=== PATIENT | female | born 2000 | race Two or more races ===

== ENCOUNTER 2022-06-03 15:17 | Emergency (ER) | payer MEDICAID, SELFPAY ==
--- NOTE | ~2022-06-03 | US_ITS ---
EXAMINATION: US OBSTETRICAL ULTRASOUND CLINICAL INFORMATION: Early , cramping and spotting. Vomiting for 2 days. COMPARISON: None. LMP: 04/04/2022. Gestational age by maternal dates is 8 weeks 4 days. Estimated date of delivery by maternal dates is 01/09/2023. TECHNIQUE: Ultrasound of the maternal pelvis is performed using transabdominal transducer. M-mode Doppler is also performed. FINDINGS: There is a single intrauterine gestational sac with visible yolk sac, embryo/fetus, and cardiac activity. There is no significant subchorionic hemorrhage or hematoma. HR: 172 beats per minute. CRL (crown rump length): 2.19 cm (8 weeks 6 days +/- 4 days). AVE (estimated date of delivery): 01/07/2023 +/- 4 days. MATERNAL ADNEXA: The right maternal ovary measures 3.6 x 1.2 x 1.5 cm. The left maternal ovary measures 4.0 x 2.6 x 2.8 cm. No maternal adnexal mass. No maternal pelvic ascites. US/US OB <= 14 weeks fetus IMPRESSION: -Single intrauterine gestation with ultrasound gestational age of 8 weeks 6 days +/- 4 days. -Estimated date of delivery is 01/07/2023 +/- 4 days. - cardiac activity 172 bpm. -No subchorionic hematoma. -No maternal adnexal mass or pelvic ascites.
[2022-06-03 15:46] VITALS: BP 108/68; PULSE 63; RESP 16; TEMP 36.2; O2SAT 100; BMI 27.2
--- NOTE | 2022-06-03 15:49 | ED.PREGNANCY ---
HPI - General Chief complaint: Nausea/Vomiting/Diarrhea <SCOOTER Montes De Oca - Last Filed: 06/03/22 15:52> Stated complaint: Vomiting 8 weeks <SCOOTER Montes De Oca - Last Filed: 06/03/22 15:52> Time Seen by Provider: 06/03/22 17:44 <SCOOTER Montes De Oca - Last Filed: 06/03/22 15:52> Source: patient <SCOOTER Coffey Last Filed: 06/03/22 19:09> Mode of arrival: ambulatory <SCOOTER Coffey Last Filed: 06/03/22 19:09> Limitations: no limitations <SCOOTER Coffey Last Filed: 06/03/22 19:09> History of Present Illness HPI Narrative: Patient is a 21 year old assigned female at with no reported medical history presenting to the emergency department today with nausea and pelvic cramping. Patient states that she is 8 weeks and has been having a lot of nausea, vomiting, and pelvic cramping. Patient denies any dizziness, lightheadedness, fever, chills, blurry vision, double vision, loss of vision, chest pain, difficulty breathing, shortness of breath, back pain, night sweats, pain with urination, increased urinary frequency, increased urinary urgency, blood in her urine or stool, syncope or a near syncopal episode, recent trauma or falls, bowel incontinence, bladder incontinence, bowel retention, bladder retention, or any other complaints at this time. Patient denies any vaginal discharge or bleeding at this time. <SCOOTER Coffey - Last Filed: 06/03/22 19:09> Onset (ago): day(s) <SCOOTER Coffey - Last Filed: 06/03/22 19:09> Severity scale (1-10): 1 <SCOOTER Coffey Last Filed: 06/03/22 19:09> Vaginal discharge: none <SCOOTER Coffey Last Filed: 06/03/22 19:09> Vaginal bleeding: none <SCOOTER Coffey Last Filed: 06/03/22 19:09> Number of Weeks : 8 <SCOOTER Coffey Last Filed: 06/03/22 19:09> care: none <SCOOTER Coffey Last Filed: 06/03/22 19:09> Related Data Home medications: Previous Rx's Medication Instructions Recorded cephalexin 500 mg capsule 500 mg PO Q6H 7 days #28 caps 06/03/22 metoclopramide HCl 5 mg tablet 5 mg PO DAILY #7 tabs 06/03/22 (Reglan) prenat.vits,celestino,[id number] 1 tab PO DAILY #30 tabs 06/03/22 <SCOOTER Montes De Oca Last Filed: 06/03/22 15:52> Allergies/Adverse reactions: Allergies Allergy/AdvReac Type Severity Reaction Status Date / Time No Known Allergies Allergy Verified 06/03/22 15:46 <SCOOTER Montes De Oca Last Filed: 06/03/22 15:52> Review of Systems Constitutional: Constitutional: Reports no additional constitutional complaints, Denies chills, Denies fever(s) and Denies night sweats <SCOOTER Coffey Last Filed: 06/03/22 19:09> Eyes: Eyes: Reports no additional eye complaints, Denies blurry vision, Denies change in vision, Denies diplopia, Denies eye discharge, Denies loss of vision and Denies eye pain <SCOOTER Coffey Last Filed: 06/03/22 19:09> ENT: Denies dizziness <SCOOTER Coffey Last Filed: 06/03/22 19:09> Cardiovascular: Cardiovascular: Reports no additional cardiovascular complaints, Denies chest pain, Denies lightheadedness, Denies Loss of Consciousness and Denies dyspnea <SCOOTER Coffey Last Filed: 06/03/22 19:09> Respiratory: Respiratory: Reports no additional respiratory complaints and Denies dyspnea <SCOOTER Coffey Last Filed: 06/03/22 19:09> Gastrointestinal: Gastrointestinal: Reports no additional gastrointestinal complaints, Reports abdominal pain, Denies melena, Denies hematochezia, Denies change in bowel habits, Denies change in stool character, Reports nausea and Reports vomiting <SCOOTER Coffey Last Filed: 06/03/22 19:09> Genitourinary: Genitourinary: Denies hematuria, Denies urinary frequency, Denies dysuria, Denies urinary incontinence, Denies urinary hesitancy and Denies urinary urgency <SCOOTER Coffey - Last Filed: 06/03/22 19:09> Musculoskeletal: Musculoskeletal: Reports no additional musculoskeletal complaints, Denies numbness and Denies tingling <SCOOTER Coffey - Last Filed: 06/03/22 19:09> Neurologic: Denies dizziness, Denies loss of vision, Denies numbness and Denies tingling <SCOOTER Coffey - Last Filed: 06/03/22 19:09> Psychiatric: Psychiatric: Reports no additional psychiatric complaints <SCOOTER Coffey - Last Filed: 06/03/22 19:09> Endocrine: Endocrine: Reports no additional endocrine complaints <SCOOTER Coffey - Last Filed: 06/03/22 19:09> Hematologic/Lymphatic: Hematologic/Lymphatic: Reports no additional hematologic/lymphatic complaints <SCOOTER Coffey - Last Filed: 06/03/22 19:09> Allergic/Immunologic: Allergic/Immunologic: Reports no additional allergic/immunologic complaints <SCOOTER Coffey - Last Filed: 06/03/22 19:09> [facility] Past Medical History Attestation statement: The following information was validated with the patient. <SCOOTER Coffey - Last Filed: 06/03/22 19:09> Source: old records reviewed and nursing notes reviewed <SCOOTER Coffey - Last Filed: 06/03/22 19:09> Social History Social History: Social History Advance Directives: No Advance Directives Information Provided: No <SCOOTER Montes De Oca - Last Filed: 06/03/22 15:52> Physical Exam Vital Signs: Vital Signs: Last Vital Signs Temp 97.1 F 06/03/22 15:46 Pulse 77 06/03/22 18:51 Resp 18 06/03/22 18:51 BP 115/68 06/03/22 18:51 Pulse Ox 99 06/03/22 18:51 O2 Del Method 06/03/22 18:51 BMI result Body Mass Index 27.2 <SCOOTER Montes De Oca - Last Filed: 06/03/22 15:52> Vital Signs: Last Vital Signs Temp 97.1 F 06/03/22 15:46 Pulse 77 06/03/22 18:51 Resp 18 06/03/22 18:51 BP 115/68 06/03/22 18:51 Pulse Ox 99 06/03/22 18:51 O2 Del Method 06/03/22 18:51 BMI result Body Mass Index 27.2 <SCOOTER Coffey - Last Filed: 06/03/22 19:09> Const: General: cooperative, no acute distress, alert and awake <SCOOTER Coffey - Last Filed: 06/03/22 19:09> Nutritional Appearance: well nourished <SCOOTER Coffey - Last Filed: 06/03/22 19:09> Orientation/consciousness: patient oriented x3 <SCOOTER Coffey - Last Filed: 06/03/22 19:09> Limitations: no limitations <SCOOTER Coffey - Last Filed: 06/03/22 19:09> HEENT: Head: Yes normal to inspection and Yes atraumatic <SCOOTER Coffey - Last Filed: 06/03/22 19:09> Ears: hearing grossly normal bilaterally and external ears normal <SCOOTER Coffey - Last Filed: 06/03/22 19:09> General nose exam: Normal external nose present, no nasal discharge noted and no epistaxis <SCOOTER Coffey - Last Filed: 06/03/22 19:09> Face and sinus: Yes normal facial exam, No abrasion and No laceration <SCOOTER Coffey - Last Filed: 06/03/22 19:09> Mouth: Normal oral and palatal mucosa present, no drooling and no muffled voice <SCOOTER Coffey - Last Filed: 06/03/22 19:09> Eyes: General: appearance normal, both eyes and all related structures <SCOOTER Coffey - Last Filed: 06/03/22 19:09> Periorbital: periorbital findings normal <SCOOTER Coffey - Last Filed: 06/03/22 19:09> Eyelids: Yes eyelids normal <SCOOTER Coffey - Last Filed: 06/03/22 19:09> Conjunctivae: conjunctivae normal <SCOOTER Coffey - Last Filed: 06/03/22 19:09> Pupils: Equal, round and reactive pupils present <Rianna Thompson PA - Last Filed: 06/03/22 19:09> EOM: EOMs intact bilaterally <Rianna Thompson MT - Last Filed: 06/03/22 19:09> Neck: Neck: Yes normal visual inspection, Yes full ROM and Yes no lymphadenopathy <Rianna Thompson MT - Last Filed: 06/03/22 19:09> Chest: Chest palpation & inspection: normal inspection of the chest <Rianna Thompson PA - Last Filed: 06/03/22 19:09> Resp: Effort & Inspection: normal respiratory effort and able to speak in complete sentences <Rianna Villanuevaporfirio MT - Last Filed: 06/03/22 19:09> Auscultation: clear to auscultation bilaterally <Rianna Thompson MT - Last Filed: 06/03/22 19:09> Cardio: Rate: regular rate <Rianna Villanuevaporfirio MT - Last Filed: 06/03/22 19:09> Rhythm: regular rhythm <Rianna Thompson MT - Last Filed: 06/03/22 19:09> GI: Inspection: Yes normal to inspection <Rianna Thompson MT - Last Filed: 06/03/22 19:09> Palpation (GI): Soft to palpation, not firm, nontender, no guarding and not rigid <Rianna Thompson MT - Last Filed: 06/03/22 19:09> Neuro: General: patient oriented x3 and moves all extremities <Rianna Villanuevaporfirio MT - Last Filed: 06/03/22 19:09> Cranial nerves: Yes Equal, round and reactive pupils present <Rianna Villanuevaporfirio PA - Last Filed: 06/03/22 19:09> Cognition (Neuro): normal cognition <Rianna Villanuevaporfirio PA - Last Filed: 06/03/22 19:09> Motor exam (neuro): 5/5 motor strength present throughout <Rianna Villanuevaporfirio PA - Last Filed: 06/03/22 19:09> Sensory Exam: Normal double simultaneous stimulation for sensation <Rianna Villanuevaporfirio MT - Last Filed: 06/03/22 19:09> Coordination: [id number] test normal <SCOOTER Coffey Last Filed: 06/03/22 19:09> Extrem: General: Yes normal to inspection, Yes full ROM and Yes capillary refill normal <SCOOTER Coffey Last Filed: 06/03/22 19:09> Psych: Appearance: grossly normal <SCOOTER Coffey Last Filed: 06/03/22 19:09> Mental Status: mental status grossly normal <SCOOTER Coffey Last Filed: 06/03/22 19:09> Affect: normal affect <SCOOTER Coffey Last Filed: 06/03/22 19:09> Attitude: cooperative <SCOOTER Coffey Last Filed: 06/03/22 19:09> Thought process: Normal thought process present <SCOOTER Coffey Last Filed: 06/03/22 19:09> Thought content: Normal thought content present <SCOOTER Coffey Last Filed: 06/03/22 19:09> Insight: Good insight present (Psych) <SCOOTER Coffey Last Filed: 06/03/22 19:09> Course Course Course Narrative: RME - 21 y/o female G1 currently 8 weeks with LMP 04/04/22 who presents to the ER for diffuse vomiting for the last 2 days, unable to tolerate any PO. Not taking anything for nausea. She also reports cramping and spotting. [facility] who instructed her to come to the ER for further management. Plan: labs and OB/US <SCOOTER Montes De Oca Last Filed: 06/03/22 15:52> Medications Administered Discontinued Medications Generic Name Dose Route Start Last Admin Trade Name Freq PRN Reason Stop Dose Admin Cephalexin HCl 500 mg 06/03/22 18:36 06/03/22 18:48 Cephalexin 500 Mg Capsule PO 06/03/22 18:37 500 mg ONCE ONE Administration Sodium Chloride 1,000 mls @ 999 mls/hr 06/03/22 18:00 06/03/22 18:18 Ns IV 06/03/22 19:00 999 mls/hr .Q1H1M GOLDEN Administration <SCOOTER Montes De Oca Last Filed: 06/03/22 15:52> Medications Administered Discontinued Medications Generic Name Dose Route Start Last Admin Trade Name Mike PRN Reason Stop Dose Admin Cephalexin HCl 500 mg 06/03/22 18:36 06/03/22 18:48 Cephalexin 500 Mg Capsule PO 06/03/22 18:37 500 mg ONCE ONE Administration Sodium Chloride 1,000 mls @ 999 mls/hr 06/03/22 18:00 06/03/22 18:18 Ns IV 06/03/22 19:00 999 mls/hr .Q1H1M GOLDEN Administration <SCOOTER Coffey - Last Filed: 06/03/22 19:09> Medical Decision Making Medical Decision Making [facility] Narrative: Patient is a 21 year old assigned female at with no reported medical history presenting to the emergency department today with nausea, vomiting, and pelvic cramping. Patient's physical exam was unremarkable. Patient's blood work was unremarkable. Patient's inital urine was very contaminated. Patient's repeat urine was less contaminated but did show evidence of a UTI. Given the patient's status, will treat the UTI. Patient's OB US showed a single intrauterine gestation with strong cardiac activity at 172 bpm. I explained my physical exam findings as well as all test results to the patient. I answered all questions asked by the patient. Patient received IV fluids which she stated helped her symptoms significantly. I stressed the importance of the patient taking her medication as prescribed. I stressed the importance of the patient following up with her primary care provider and an OBGYN. I stressed the importance of the patient returning to the emergency department immediately if her symptoms were to worsen or if she were to develop any vaginal bleeding, vaginal discharge, dizziness, shortness of breath, difficulty breathing, chest pain, blurry vision, loss of vision, nausea, vomiting, abdominal pain, fever, chills, back pain, or any other complaints. Patient verbalized agreement and understanding with this treatment plan and discharge. <SCOOTER Coffey - Last Filed: 06/03/22 19:09> Differential Diagnosis Differential Diagnoses: The differential diagnosis associated with the presentation includes <SCOOTER Coffey - Last Filed: 06/03/22 19:09> nausea, UTI, first trimester <SCOOTER Coffey - Last Filed: 06/03/22 19:09> Lab Data [facility] Lab Attestation statement: I reviewed the patient's lab results. <SCOOTER Coffey Last Filed: 06/03/22 19:09> Result Diagrams: 06/03/22 16:10 06/03/22 16:10 <SCOOTER Montes De Oca - Last Filed: 06/03/22 15:52> Labs: Lab Results 06/03/22 06/03/22 06/03/22 Range/Units 16:05 16:10 16:10 WBC 4.6 L (4.8-10.8) X10*3/uL RBC 3.98 L (4.20-5.50) X10*6/uL Hgb 11.8 L (12.0-16.0) g/dl Hct 35.8 L (37.0-47.0) % MCV 89.9 (80.0-98.0) fL MCH 29.6 (27.0-33.0) pg MCHC 33.0 (31.0-35.0) g/dl RDW 13.8 (11.0-16.0) % Plt Count 219 (160-400) X10*3/uL MPV 9.4 (9.4-12.3) fL Immature Gran % (Auto) 0.2 (0.0-0.4) % Neut % (Auto) 58.0 (45-73) % Lymph % (Auto) 35.0 (20-40) % Person % (Auto) 6.6 (2-11) % Eos % (Auto) 0.0 (0-4) % Baso % (Auto) 0.2 (0-2) % Lymph # (Auto) 1.6 (1.2-4.9) X10*3/uL Person # (Auto) 0.3 (0.1-1.2) X10*3/uL Eos # (Auto) 0.0 (0.0-0.4) X10*3/uL Baso # (Auto) 0.0 (0.0-0.2) X10*3/uL Abs Immat Gran (auto) 0.01 (0.00-0.03) X10*3/uL Absolute Neuts (auto) 2.7 (2.0-8.3) x10*3/uL Absolute Nucleated RBC 0.000 (0.0-0.012) X10*3/uL Nucleated RBC % (auto) 0.0 (0.0-0.2) /100WBC Sodium 136 (135-145) mmol/L Potassium 3.5 (3.3-5.1) mmol/L Chloride 103 (96-108) mmol/L Carbon Dioxide 22 (22-29) mmol/L Anion Gap 15 (12-20) BUN 6 L (9-16) mg/dL Creatinine 0.57 (0.5-1.4) mg/dL Estim Creat Clear Calc 141.9 Estimated GFR > 60 Random Glucose 75 (60-115) mg/dL Calcium 9.2 (8.4-10.2) mg/dL Magnesium 1.8 (1.6-2.6) mg/dL Total Bilirubin 0.6 (0.0-1.0) mg/dL Direct Bilirubin 0.2 (0.0-0.5) mg/dL AST 12 (5-31) U/L ALT < 6 (0-31) U/L Alkaline Phosphatase 41 (39-117) U/L Total Protein 7.2 (6.5-8.0) g/dL Albumin 4.4 (3.5-5.0) g/dL Beta HCG, Quant mIU/mL Urine Color Dark Yellow Urine Appearance Cloudy Urine pH 6.0 (5.0-9.0) Ur Specific [place] >= 1.030 H (1.005-1.025) Urine Protein 30 (1+) H (Neg-Trace) mg/dL Urine Glucose (UA) Negative (Negative) mg/dL Urine Ketones >=160 (Negative) mg/dL Urine Blood Small (1+) H (Negative) Urine Nitrite Negative (Negative) Ur Leukocyte Esterase Small (1+) H (Negative) Urine RBC 3-5 H (0-2) /HPF Urine WBC 21-50 H (0-5) /HPF Ur Squamous Epith Cells >20 (0-2) /HPF Urine Bacteria 4+ (None Seen) Hyaline Casts 0-2 (0-2) /LPF 06/03/22 06/03/22 Range/Units 16:10 18:11 WBC (4.8-10.8) X10*3/uL RBC (4.20-5.50) X10*6/uL Hgb (12.0-16.0) g/dl Hct (37.0-47.0) % MCV (80.0-98.0) fL MCH (27.0-33.0) pg MCHC (31.0-35.0) g/dl RDW (11.0-16.0) % Plt Count (160-400) X10*3/uL MPV (9.4-12.3) fL Immature Gran % (Auto) (0.0-0.4) % Neut % (Auto) (45-73) % Lymph % (Auto) (20-40) % Person % (Auto) (2-11) % Eos % (Auto) (0-4) % Baso % (Auto) (0-2) % Lymph # (Auto) (1.2-4.9) X10*3/uL Person # (Auto) (0.1-1.2) X10*3/uL Eos # (Auto) (0.0-0.4) X10*3/uL Baso # (Auto) (0.0-0.2) X10*3/uL Abs Immat Gran (auto) (0.00-0.03) X10*3/uL Absolute Neuts (auto) (2.0-8.3) x10*3/uL Absolute Nucleated RBC (0.0-0.012) X10*3/uL Nucleated RBC % (auto) (0.0-0.2) /100WBC Sodium (135-145) mmol/L Potassium (3.3-5.1) mmol/L Chloride (96-108) mmol/L Carbon Dioxide (22-29) mmol/L Anion Gap (12-20) BUN (9-16) mg/dL Creatinine (0.5-1.4) mg/dL Estim Creat Clear Calc Estimated GFR Random Glucose (60-115) mg/dL Calcium (8.4-10.2) mg/dL Magnesium (1.6-2.6) mg/dL Total Bilirubin (0.0-1.0) mg/dL Direct Bilirubin (0.0-0.5) mg/dL AST (5-31) U/L ALT (0-31) U/L Alkaline Phosphatase (39-117) U/L Total Protein (6.5-8.0) g/dL Albumin (3.5-5.0) g/dL Beta HCG, Quant 25597 mIU/mL Urine Color Yellow Urine Appearance Cloudy Urine pH 6.5 (5.0-9.0) Ur Specific [place] 1.010 (1.005-1.025) Urine Protein Negative (Neg-Trace) mg/dL Urine Glucose (UA) Negative (Negative) mg/dL Urine Ketones 40 (Negative) mg/dL Urine Blood Small (1+) H (Negative) Urine Nitrite Negative (Negative) Ur Leukocyte Esterase Small (1+) H (Negative) Urine RBC 0-2 (0-2) /HPF Urine WBC 11-20 H (0-5) /HPF Ur Squamous Epith Cells 11-20 (0-2) /HPF Urine Bacteria 1+ (None Seen) Hyaline Casts 0-2 (0-2) /LPF <SCOOTER Montes De Oca - Last Filed: 06/03/22 15:52> Lab Results 06/03/22 06/03/22 06/03/22 Range/Units 16:05 16:10 16:10 WBC 4.6 L (4.8-10.8) X10*3/uL RBC 3.98 L (4.20-5.50) X10*6/uL Hgb 11.8 L (12.0-16.0) g/dl Hct 35.8 L (37.0-47.0) % MCV 89.9 (80.0-98.0) fL MCH 29.6 (27.0-33.0) pg MCHC 33.0 (31.0-35.0) g/dl RDW 13.8 (11.0-16.0) % Plt Count 219 (160-400) X10*3/uL MPV 9.4 (9.4-12.3) fL Immature Gran % (Auto) 0.2 (0.0-0.4) % Neut % (Auto) 58.0 (45-73) % Lymph % (Auto) 35.0 (20-40) % Person % (Auto) 6.6 (2-11) % Eos % (Auto) 0.0 (0-4) % Baso % (Auto) 0.2 (0-2) % Lymph # (Auto) 1.6 (1.2-4.9) X10*3/uL Person # (Auto) 0.3 (0.1-1.2) X10*3/uL Eos # (Auto) 0.0 (0.0-0.4) X10*3/uL Baso # (Auto) 0.0 (0.0-0.2) X10*3/uL Abs Immat Gran (auto) 0.01 (0.00-0.03) X10*3/uL Absolute Neuts (auto) 2.7 (2.0-8.3) x10*3/uL Absolute Nucleated RBC 0.000 (0.0-0.012) X10*3/uL Nucleated RBC % (auto) 0.0 (0.0-0.2) /100WBC Sodium 136 (135-145) mmol/L Potassium 3.5 (3.3-5.1) mmol/L Chloride 103 (96-108) mmol/L Carbon Dioxide 22 (22-29) mmol/L Anion Gap 15 (12-20) BUN 6 L (9-16) mg/dL Creatinine 0.57 (0.5-1.4) mg/dL Estim Creat Clear Calc 141.9 Estimated GFR > 60 Random Glucose 75 (60-115) mg/dL Calcium 9.2 (8.4-10.2) mg/dL Magnesium 1.8 (1.6-2.6) mg/dL Total Bilirubin 0.6 (0.0-1.0) mg/dL Direct Bilirubin 0.2 (0.0-0.5) mg/dL AST 12 (5-31) U/L ALT < 6 (0-31) U/L Alkaline Phosphatase 41 (39-117) U/L Total Protein 7.2 (6.5-8.0) g/dL Albumin 4.4 (3.5-5.0) g/dL Beta HCG, Quant mIU/mL Urine Color Dark Yellow Urine Appearance Cloudy Urine pH 6.0 (5.0-9.0) Ur Specific [place] >= 1.030 H (1.005-1.025) Urine Protein 30 (1+) H (Neg-Trace) mg/dL Urine Glucose (UA) Negative (Negative) mg/dL Urine Ketones >=160 (Negative) mg/dL Urine Blood Small (1+) H (Negative) Urine Nitrite Negative (Negative) Ur Leukocyte Esterase Small (1+) H (Negative) Urine RBC 3-5 H (0-2) /HPF Urine WBC 21-50 H (0-5) /HPF Ur Squamous Epith Cells >20 (0-2) /HPF Urine Bacteria 4+ (None Seen) Hyaline Casts 0-2 (0-2) /LPF 06/03/22 06/03/22 Range/Units 16:10 18:11 WBC (4.8-10.8) X10*3/uL RBC (4.20-5.50) X10*6/uL Hgb (12.0-16.0) g/dl Hct (37.0-47.0) % MCV (80.0-98.0) fL MCH (27.0-33.0) pg MCHC (31.0-35.0) g/dl RDW (11.0-16.0) % Plt Count (160-400) X10*3/uL MPV (9.4-12.3) fL Immature Gran % (Auto) (0.0-0.4) % Neut % (Auto) (45-73) % Lymph % (Auto) (20-40) % Person % (Auto) (2-11) % Eos % (Auto) (0-4) % Baso % (Auto) (0-2) % Lymph # (Auto) (1.2-4.9) X10*3/uL Person # (Auto) (0.1-1.2) X10*3/uL Eos # (Auto) (0.0-0.4) X10*3/uL Baso # (Auto) (0.0-0.2) X10*3/uL Abs Immat Gran (auto) (0.00-0.03) X10*3/uL Absolute Neuts (auto) (2.0-8.3) x10*3/uL Absolute Nucleated RBC (0.0-0.012) X10*3/uL Nucleated RBC % (auto) (0.0-0.2) /100WBC Sodium (135-145) mmol/L Potassium (3.3-5.1) mmol/L Chloride (96-108) mmol/L Carbon Dioxide (22-29) mmol/L Anion Gap (12-20) BUN (9-16) mg/dL Creatinine (0.5-1.4) mg/dL Estim Creat Clear Calc Estimated GFR Random Glucose (60-115) mg/dL Calcium (8.4-10.2) mg/dL Magnesium (1.6-2.6) mg/dL Total Bilirubin (0.0-1.0) mg/dL Direct Bilirubin (0.0-0.5) mg/dL AST (5-31) U/L ALT (0-31) U/L Alkaline Phosphatase (39-117) U/L Total Protein (6.5-8.0) g/dL Albumin (3.5-5.0) g/dL Beta HCG, Quant 64674 mIU/mL Urine Color Yellow Urine Appearance Cloudy Urine pH 6.5 (5.0-9.0) Ur Specific [place] 1.010 (1.005-1.025) Urine Protein Negative (Neg-Trace) mg/dL Urine Glucose (UA) Negative (Negative) mg/dL Urine Ketones 40 (Negative) mg/dL Urine Blood Small (1+) H (Negative) Urine Nitrite Negative (Negative) Ur Leukocyte Esterase Small (1+) H (Negative) Urine RBC 0-2 (0-2) /HPF Urine WBC 11-20 H (0-5) /HPF Ur Squamous Epith Cells 11-20 (0-2) /HPF Urine Bacteria 1+ (None Seen) Hyaline Casts 0-2 (0-2) /LPF <SCOOTER Coffey - Last Filed: 06/03/22 19:09> Independent Interpretation I performed an independent interpretation of an: Ultrasound <SCOOTER Coffey - Last Filed: 06/03/22 19:09> Interpretation: My interpretation is in agreement with the radiologist's impression of this imaging study. EXAMINATION:? US OBSTETRICAL ULTRASOUND CLINICAL INFORMATION:? Early , cramping and spotting. Vomiting for 2 days. COMPARISON:? None.? LMP: 04/04/2022. Gestational age by maternal dates is 8 weeks 4 days. Estimated date of delivery by maternal dates is 01/09/2023. TECHNIQUE: Ultrasound of the maternal pelvis is performed using transabdominal transducer. M-mode Doppler is also performed. ? FINDINGS: There is a single intrauterine gestational sac with visible yolk sac, embryo/fetus, and cardiac activity.? There is no significant subchorionic hemorrhage or hematoma. HR:? 172 beats per minute. CRL (crown rump length): ? 2.19 cm (8 weeks 6 days +/- 4 days). [address] (estimated date of delivery):? 01/07/2023 +/- 4 days. ? MATERNAL ADNEXA: ? ? The right maternal ovary measures 3.6 x 1.2 x 1.5 cm. The left maternal ovary measures 4.0 x 2.6 x 2.8 cm. No maternal adnexal mass.? No maternal pelvic ascites. US/US OB <= 14 weeks fetus IMPRESSION: -Single intrauterine gestation with ultrasound gestational age of? 8 weeks 6 days +/- 4 days. -Estimated date of delivery is 01/07/2023 +/- 4 days. - cardiac activity 172 bpm. -No subchorionic hematoma. -No maternal adnexal mass or pelvic ascites. Dictated By: Philip Houser MD Signed By: Electronically signed by Philip Houser MD 06/03/22 1720 <SCOOTER Coffey - Last Filed: 06/03/22 19:09> Procedures Perimortem Number of Weeks : 8 <SCOOTER Coffey - Last Filed: 06/03/22 19:09> Discharge Plan Discharge Clinical Impression: First trimester , Urinary tract infection, Nausea <SCOOTER Montes De Oca - Last Filed: 06/03/22 15:52> Patient Disposition: Home, Self-Care <SCOOTER Montes De Oca Last Filed: 06/03/22 15:52> Instructions: Urinary Tract Infection in (ED), First Trimester (ED) <SCOOTER Montes De Oca - Last Filed: 06/03/22 15:52> Additional Instructions: Please begin taking your vitamins and your antibiotics. Follow up with your primary care provider and an OBGYN. Return to the emergency department immediately if your symptoms worsen or if you develop any dizziness, shortness of breath, difficulty breathing, chest pain, blurry vision, loss of vision, nausea, vomiting, abdominal pain, fever, chills, back pain, or any other complaints. <SCOOTER Montes De Oca - Last Filed: 06/03/22 15:52> Prescriptions: New cephalexin 500 mg capsule 500 mg PO Q6H 7 Days Qty: 28 0RF metoclopramide HCl [Reglan] 5 mg tablet 5 mg PO DAILY Qty: 7 0RF prenat.vits,celestino,[id number] Tablet 1 tab PO DAILY Qty: 30 0RF <SCOOTER Montes De Oca - Last Filed: 06/03/22 15:52> Referrals: [facility] [place] [facility] [place] Group] (Call to establish and follow up with a primary care provider. If you already have a primary care provider, please follow up with them.) [facility] [place] [facility] [Provider Group] (Call to establish and follow up with a primary care provider. If you already have a primary care provider, please follow up with them.) [facility] [place] [facility]Mckayla [Provider Group] (Call to establish and follow up with a primary care provider. If you already have a primary care provider, please follow up with them.) Jesus Ohara MD [Physician] - (Call to establish and follow up with an OBGYN.) <SCOOTER Montes De Oca - Last Filed: 06/03/22 15:52> Stand Alone Forms: Work/School Release <SCOOTER Montes De Oca - Last Filed: 06/03/22 15:52> Interventions: ED Discharge Assessment Last Done: 06/03/22 18:55 <SCOOTER Montes De Oca - Last Filed: 06/03/22 15:52> Discharge Date/Time: 06/03/22 18:56 <SCOOTER Montes De Oca - Last Filed: 06/03/22 15:52> Print Language: Citizen Of [place] <SCOOTER Montes De Oca - Last Filed: 06/03/22 15:52>
[2022-06-03 16:27] LABS: MANUAL DIFF FLAG NO
[2022-06-03 16:29] LABS: Appearance Urine Cloudy; Color Urine Dark Yellow; Glucose Urine UA Negative (Negative); Leukocyte Esterase Urine Small (1+) (Negative); Nitrite Urine Negative (Negative); Specific Gravity - Urine >= 1.030 (1.005-1.025); UMIC TRIGGER UACC YES; Urine Blood Small (1+) (Negative); Urine Ketones >=160 mg/dL (Negative); Urine Protein 30 (1+) mg/dL (Neg-Trace)
[2022-06-03 16:29] LABS: Basophils Percent Auto 0.2 % (0-2); Hematocrit 35.8 % (37.0-47.0); Hemoglobin 11.8 g/dl (12.0-16.0); Imm Gran Abs Auto 0.01 X10*3/uL (0.00-0.03); Imm Gran Pct Auto 0.2 % (0.0-0.4); Lymphocytes Absolute Auto 1.6 X10*3/uL (1.2-4.9); Mean Corpuscular Hemoglobin 29.6 pg (27.0-33.0); Mean Corpuscular Volume 89.9 fL (80.0-98.0); Mean Platelet Volume 9.4 fL (9.4-12.3); Monocytes Absolute Auto 0.3 X10*3/uL (0.1-1.2); Monocytes Percent Auto 6.6 % (2-11); Neutrophils Absolute Auto 2.7 x10*3/uL (2.0-8.3); Platelet Count 219 X10*3/uL (160-400); Red Blood Count 3.98 X10*6/uL (4.20-5.50); Red Cell Distribution Width 13.8 % (11.0-16.0); White Blood Count 4.6 X10*3/uL (4.8-10.8)
[2022-06-03 16:52] LABS: Alanine Aminotransferase < 6 U/L (0-31); Albumin Level 4.4 g/dL (3.5-5.0); Alkaline Phosphatase 41 U/L (39-117); Anion Gap 15 (12-20); Aspartate Amino Transferase 12 U/L (5-31); Bilirubin Direct 0.2 mg/dL (0.0-0.5); Bilirubin Total 0.6 mg/dL (0.0-1.0); Blood Urea Nitrogen 6 mg/dL (9-16); Calcium 9.2 mg/dL (8.4-10.2); Carbon Dioxide 22 mmol/L (22-29); Chloride 103 mmol/L (96-108); Creatinine Clr Calc Pharmacy 141.9; Estimated Glomerular Filt Rate > 60; Glucose Random 75 mg/dL (60-115); Magnesium 1.8 mg/dL (1.6-2.6); Potassium 3.5 mmol/L (3.3-5.1); Sodium 136 mmol/L (135-145); Total Protein 7.2 g/dL (6.5-8.0)
[2022-06-03 16:55] LABS: HCG Quantitative 10703 mIU/mL
[2022-06-03 17:20] LABS: Bacteria Urine 4+ (None Seen); Hyaline Casts Urine 0-2 /LPF (0-2); Squamous Epithelial Cell Urine >20 /HPF (0-2); UACC Culture Trigger YES; WBC Urine 21-50 /HPF (0-5)
[2022-06-03 18:17] LABS: Appearance Urine Cloudy; Color Urine Yellow; Glucose Urine UA Negative (Negative); Leukocyte Esterase Urine Small (1+) (Negative); Nitrite Urine Negative (Negative); PH 6.5 (5.0-9.0); UMIC TRIGGER UACC YES; Urine Blood Small (1+) (Negative); Urine Ketones 40 mg/dL (Negative); Urine Protein Negative (Neg-Trace)
[2022-06-03] MEDS: 0.9 % Sodium Chloride 1,000 ML 999 ML IV (18:18)
[2022-06-03 18:24] LABS: Bacteria Urine 1+ (None Seen); Hyaline Casts Urine 0-2 /LPF (0-2); RBC Urine 0-2 /HPF (0-2); UACC Culture Trigger YES
[2022-06-03] MEDS: cephALEXin 500 MG CAPSULE PO (18:48)
[2022-06-03 18:51] VITALS: BP 115/68; PULSE 77; RESP 18; O2SAT 99
== END 2022-06-03 18:56 | disposition home or self-care (01) ==
PROVIDERS: Physician Assistant; Physician Assistant Medical; Emergency Provider Emergency Medicine
DX: O23.41 Unspecified infection of urinary tract in pregnancy, first trimester (principal); N39.0 Urinary tract infection, site not specified; R11.2 Nausea with vomiting, unspecified
CPT/HCPCS: 36415; 76801; 80048; 80076; 81001; 83735; 84702; 85025; 87086; 87147; 99283; 99284